=== PATIENT | female | born 1980 | race African-American/Black ===

== ENCOUNTER 2017-05-12 09:07 | Emergency (ER) | payer MEDICAID ==
[~2017-05-12] VITALS: Ht 172.7 cm; Wt 61.6 kg
[~2017-05-12 09:07] MED LIST: FAMO20TA7 PO; FLUO10CA13 PO; HYDR-3245 PO; HYDR-3307 PO; HYDR25TA11 PO; IBUP-1223 PO; METH500T97 PO; OXYB5TAB7 PO; PRED20TA PO; PREG25CA PO; QUET25TA5 PO
[2017-05-12 09:12] VITALS: BP 114/77
== END 2017-05-12 10:08 | disposition left against medical advice (07) ==
LOC: ED 10:02
DX: R10.9 Unspecified abdominal pain (principal); Z53.21 Procedure and treatment not carried out due to patient leaving prior to being seen by health care provider

== ENCOUNTER 2018-02-22 16:24 | Emergency (ER) | payer MEDICAID ==
[~2018-02-22 16:24] MED LIST changes: +OMEP-110 PO; +ONDA4TAB10 PO
[2018-02-22 16:40] VITALS: BP 162/105
--- NOTE | 2018-02-22 16:59 | NUR ---
PT ARRIVES TO ED WITH C/O OF BLISTERS TO NOSE. WAS GIVEN OINTMENT FOR THEM 5 DAYS AGO. PT REPORTS SOME TENDERNESS TO NOSE. VSS AND NADN. PT WATCHING TV AND SPEAKING FULL SENTANCES. AWAITING FURTHER ORDERS.
--- NOTE | 2018-02-22 17:12 | NUR ---
Patient/Caregiver given discharge instructions and they have confirmed that they understand the instructions. Patient ambulatory with steady gait.
== END 2018-02-22 17:19 | disposition home or self-care (01) ==
LOC: ED 17:18
DX: J34.0 Abscess, furuncle and carbuncle of nose (principal); J01.90 Acute sinusitis, unspecified; J45.909 Unspecified asthma, uncomplicated
CPT/HCPCS: 99283

== ENCOUNTER 2018-03-06 11:31 | Emergency (ER) | payer MEDICAID ==
[~2018-03-06] VITALS: Ht 172.7 cm; Wt 59.6 kg
[2018-03-06 11:34] VITALS: BP 109/76
[2018-03-06] MEDS ORDERED: SODIUM CHLORIDE FLUSH 10ML SYR IVF ONE (12:00)
[2018-03-06] MEDS ORDERED: METOCLOPRAMIDE 5 MG/ML, 2ML IVPush ONE (12:00)
[2018-03-06] MEDS ORDERED: DIPHENHYDRAMINE 50 MG/ML, 1ML IVPush ONE (12:00)
[2018-03-06] MEDS ORDERED: DIPHENHYDRAMINE 50 MG/ML, 1ML ONE (12:14)
[2018-03-06] MEDS ORDERED: METOCLOPRAMIDE 5 MG/ML, 2ML ONE (12:15)
[2018-03-06 12:21] LABS: BASOPHILS % (AUTO) 0 % (0-1); EOSINOPHILS # (AUTO) 0.12 x10^3/uL (0-0.4); EOSINOPHILS % (AUTO) 1 % (1-7); LYMPHOCYTES # (AUTO) 0.48 x10^3/uL (1-3.4); LYMPHOCYTES % (AUTO) 4 % (22-44); MD NO; MEAN CORPUSCULAR HEMOGLOBIN 33.1 pg (27.0-34.8); MEAN CORPUSCULAR VOLUME 97.4 fL (80-100); MEAN PLATELET VOLUME 7.5 fL (7.4-10.4); MONOCYTES # (AUTO) 0.05 x10^3/uL (0.2-0.8); MONOCYTES % (AUTO) 1 % (2-9); NEUTROPHILS # (AUTO) 10.36 x10^3/uL (1.8-6.8); NEUTROPHILS % (AUTO) 94 % (42-75); PLATELET COUNT 237 x10^3/uL (130-400); RED BLOOD COUNT 3.89 x10^6/uL (3.82-5.3); RED CELL DISTRIBUTION WIDTH 12.8 % (9.6-15.2)
[2018-03-06 12:28] LABS: ALANINE AMINOTRANSFERASE 42 U/L (12-78); ALBUMIN 3.9 g/dL (3.4-5.0); ANION GAP 6 mmol/L (5-15); CALCIUM 9.2 mg/dL (8.5-10.1); CHLORIDE 110 mmol/L (98-107); CREATININE 0.94 mg/dL (0.55-1.02)
[2018-03-06 12:31] LABS: ALKALINE PHOSPHATASE 93 U/L (45-117); BILIRUBIN,TOTAL 0.4 mg/dL (0.2-1.0); TOTAL PROTEIN 7.1 g/dL (6.4-8.2)
--- NOTE | 2018-03-06 13:28 | NUR ---
PT TOLERATING PO FLUIDS WELL. DR ABREU TO BEDSIDE TO DISCUSS POC AND FINDINGS. PT UNABLE TO PRODUCE STOOL SAMPLE THUS FAR
== END 2018-03-06 13:54 | disposition home or self-care (01) ==
LOC: ED 11:58
DX: R11.2 Nausea with vomiting, unspecified (principal); R19.7 Diarrhea, unspecified; J45.909 Unspecified asthma, uncomplicated; G89.29 Other chronic pain
CPT/HCPCS: 36415; 80053; 83690; 85025; 96374; 96375; 99283; J1200; J2765

== ENCOUNTER 2019-08-08 09:47 | Emergency (ER) | payer MEDICAID ==
[~2019-08-08] VITALS: Ht 172.7 cm; Wt 63.6 kg
[~2019-08-08 09:47] MED LIST changes: +HYDR-3246 PO; -HYDR-3307 PO; +HYDR-826 PO; -HYDR25TA11 PO; +OXYB5TAB10 PO; -OXYB5TAB7 PO
--- NOTE | 2019-08-08 10:05 | NUR ---
FIRST CONTACT WITH PT. PT C/O VOMITING/BACK PAIN "I STARTED VOMITING LAST NIGHT AFTER I ATE BAD SUSHI AND I HAVEN'T BEEN ABLE TO TAKE MY PAIN MEDS FOR MY HERNIATED DISCS, NOW MY BACK IS KILLING ME I'M SUPPOSED TO HAVE URGENT SURGERY SOON FOR SADDLE PARASTHESIA" PT DENIES ABD PAIN/D. PT'S AOX4. RESPS EVEN AND UNLABORED. BP/SPO2 MONITORS IN PLACE. CALL LIGHT WITHIN REACH.
[2019-08-08] MEDS ORDERED: DIPHENHYDRAMINE 50 MG/ML, 1ML ONE (10:26)
[2019-08-08] MEDS ORDERED: MORPHINE SULFATE 4 MG/ML, 1ML ONE ×2 (10:27→11:51)
[2019-08-08] MEDS ORDERED: METOCLOPRAMIDE 5 MG/ML, 2ML ONE (10:27)
[2019-08-08] MEDS: MORPHINE SULFATE 4 MG/ML, 1ML IVPush PRN ×2 (10:39→11:54)
--- NOTE | 2019-08-08 10:44 | NUR ---
PT MEDICATED PER EMAR. PT TOLERATED WELL. NS INFUSING AT THIS TIME.
--- NOTE | 2019-08-08 10:59 | NUR ---
PT'S PAIN LEVEL IS 7/10 AT THIS TIME. PT STATES "I FEEL BETTER THAN BEFORE."
[2019-08-08 11:00] LABS: BASOPHILS % (AUTO) 0 % (0-1); EOSINOPHILS % (AUTO) 0 % (1-7); LYMPHOCYTES % (AUTO) 6 % (22-44); MD NO; MEAN CORPUSCULAR HEMOGLOBIN 33.5 pg (27.0-34.8); MEAN CORPUSCULAR HGB CONC 34.3 g/dL (32.4-35.8); MEAN CORPUSCULAR VOLUME 97.9 fL (80-100); MEAN PLATELET VOLUME 6.9 fL (7.4-10.4); MONOCYTES # (AUTO) 0.06 x10^3/uL (0.2-0.8); MONOCYTES % (AUTO) 1 % (2-9); NEUTROPHILS # (AUTO) 12.11 x10^3/uL (1.8-6.8); NEUTROPHILS % (AUTO) 94 % (42-75); PLATELET COUNT 293 x10^3/uL (130-400); RED BLOOD COUNT 4.14 x10^6/uL (3.82-5.3); RED CELL DISTRIBUTION WIDTH 12.8 % (9.6-15.2)
[2019-08-08] MEDS ORDERED: METOCLOPRAMIDE 5 MG/ML, 2ML IVPush ONE (11:00)
[2019-08-08] MEDS ORDERED: DIPHENHYDRAMINE 50 MG/ML, 1ML IVPush ONE (11:00)
[2019-08-08] MEDS ORDERED: SODIUM CHLORIDE FLUSH 10ML SYR IVF ONE (11:00)
[2019-08-08] MEDS ORDERED: SODIUM CHLORIDE 0.9% 1,000ML IVBOLUS ONE (11:00)
[2019-08-08 11:11] LABS: ALANINE AMINOTRANSFERASE 28 U/L (12-78); ALBUMIN 4.3 g/dL (3.4-5.0); CALCIUM 9.8 mg/dL (8.5-10.1); CREATININE 1.06 mg/dL (0.55-1.02)
[2019-08-08 11:19] LABS: CHLORIDE 108 mmol/L (98-107)
[2019-08-08 11:20] LABS: ALKALINE PHOSPHATASE 88 U/L (45-117); ANION GAP 12 mmol/L (5-15); BILIRUBIN,TOTAL 0.7 mg/dL (0.2-1.0); TOTAL PROTEIN 7.7 g/dL (6.4-8.2)
--- NOTE | 2019-08-08 11:48 | NUR ---
pt sleeping in [facility]. resps even and unlabored. bp/spo2 monitors in place. call light within reach.
[2019-08-08] MEDS ORDERED: PROMETHAZINE 25 MG/ML, 1ML ONE (11:51)
--- NOTE | 2019-08-08 11:58 | NUR ---
pt medicated per emar. pt tolerated well. pt states"my pain level is 8/10 now."
[2019-08-08] MEDS ORDERED: PROMETHAZINE 25 MG/ML, 1ML IM ONE (12:00)
[2019-08-08 13:00] VITALS: BP 118/57
--- NOTE | 2019-08-08 13:01 | NUR ---
Patient given discharge instructions and they have confirmed that they understand the instructions. Patient ambulatory with steady gait.
== END 2019-08-08 13:01 | disposition home or self-care (01) ==
LOC: ED 11:29
DX: R11.2 Nausea with vomiting, unspecified (principal); E86.0 Dehydration; J45.909 Unspecified asthma, uncomplicated
CPT/HCPCS: 36415; 80053; 83690; 85025; 96361; 96372; 96374; 96375; 96376; 99285; J1200; J2270; J2550; J2765; J7030

== ENCOUNTER 2019-08-10 05:59 | Emergency (ER) | payer MEDICAID ==
[~2019-08-10] VITALS: Ht 172.7 cm; Wt 65.0 kg
[2019-08-10] MEDS ORDERED: FAMOTIDINE 20 MG/2 ML ONE (06:20)
[2019-08-10] MEDS ORDERED: ONDANSETRON 2MG/ML, 2ML ONE (06:20)
[2019-08-10] MEDS ORDERED: SODIUM CHLORIDE 0.9% 1,000ML IVBOLUS ONE (06:30)
[2019-08-10] MEDS ORDERED: FAMOTIDINE 20 MG/2 ML IVPush ONE (06:30)
[2019-08-10] MEDS ORDERED: SODIUM CHLORIDE FLUSH 10ML SYR IVF ONE (06:30)
[2019-08-10] MEDS ORDERED: ONDANSETRON 2MG/ML, 2ML IVPush ONE (06:30)
--- NOTE | 2019-08-10 06:49 | NUR ---
REPORT GIVEN TO ONCOMING RN
[2019-08-10 06:50] LABS: BASOPHILS # (AUTO) 0.03 x10^3/uL (0-0.1); BASOPHILS % (AUTO) 0 % (0-1); EOSINOPHILS # (AUTO) 0.06 x10^3/uL (0-0.4); EOSINOPHILS % (AUTO) 1 % (1-7); LYMPHOCYTES # (AUTO) 2.24 x10^3/uL (1-3.4); LYMPHOCYTES % (AUTO) 24 % (22-44); MD NO; MEAN CORPUSCULAR HEMOGLOBIN 33.1 pg (27.0-34.8); MEAN CORPUSCULAR HGB CONC 33.6 g/dL (32.4-35.8); MEAN CORPUSCULAR VOLUME 98.7 fL (80-100); MEAN PLATELET VOLUME 6.7 fL (7.4-10.4); MONOCYTES % (AUTO) 4 % (2-9); NEUTROPHILS # (AUTO) 6.56 x10^3/uL (1.8-6.8); NEUTROPHILS % (AUTO) 71 % (42-75); PLATELET COUNT 268 x10^3/uL (130-400); RED BLOOD COUNT 3.67 x10^6/uL (3.82-5.3); RED CELL DISTRIBUTION WIDTH 13.3 % (9.6-15.2)
[2019-08-10 06:59] LABS: ALBUMIN 3.8 g/dL (3.4-5.0); CHLORIDE 112 mmol/L (98-107)
--- NOTE | 2019-08-10 07:04 | NUR ---
RECEIVED REPORT FROM [facility]. PT LAYING ON GURNEY C/O NV & PAIN- PA AWARE, PT AMBULATED STEADILY TO BR & UNABLE TO VOID, RESPONDS APPROP TO STAFF, COMFORT MEASURES PROVIDED, CALL LIGHT WITHN REACH.
[2019-08-10 07:05] LABS: ALANINE AMINOTRANSFERASE 25 U/L (12-78); ALKALINE PHOSPHATASE 80 U/L (45-117); ANION GAP 6 mmol/L (5-15); BILIRUBIN,TOTAL 0.6 mg/dL (0.2-1.0); CREATININE 1.28 mg/dL (0.55-1.02); TOTAL PROTEIN 6.8 g/dL (6.4-8.2)
[2019-08-10] MEDS ORDERED: HALOPERIDOL 5 MG/ML ONE (07:10)
[2019-08-10] MEDS ORDERED: HALOPERIDOL 5 MG/ML IM ONE (07:30)
[2019-08-10 08:00] VITALS: BP 148/87
--- NOTE | 2019-08-10 08:00 | NUR ---
PT LAYING ON GURNEY WITH EYES CLOSED & MORE COMFORTABLE, 2ND ATTEMPT TO VOID UNSUCCESSFUL, RESPONDS APPROP TO STAFF, COMFORT MEASURES PROVIDED, CALL LIGHT WITHN REACH.
--- NOTE | 2019-08-10 08:10 | NUR ---
STRAIGHT CATHED UA SENT TO LAB.
[2019-08-10] MEDS ORDERED: MORPHINE SULFATE 4 MG/ML, 1ML IVPush PRN (08:30)
[2019-08-10 08:34] LABS: MICROSCOPIC NOT IND
[2019-08-10] MEDS ORDERED: MORPHINE SULFATE 4 MG/ML, 1ML ONE (08:52)
--- NOTE | 2019-08-10 09:23 | NUR ---
Patient given discharge instructions and Rx, they have confirmed that they understand the instructions. Patient ambulatory with steady gait.
== END 2019-08-10 09:25 | disposition home or self-care (01) ==
LOC: ED 06:44
DX: K52.9 Noninfective gastroenteritis and colitis, unspecified (principal); R11.2 Nausea with vomiting, unspecified; R10.9 Unspecified abdominal pain; G89.29 Other chronic pain; J45.909 Unspecified asthma, uncomplicated
CPT/HCPCS: 36415; 80053; 81003; 83690; 84703; 85025; 96361; 96372; 96374; 96375; 99284; J1630; J2405; J3490; J7030

== ENCOUNTER 2019-08-12 11:48 | Emergency (ER) | payer MEDICAID ==
[~2019-08-12] VITALS: Ht 172.7 cm; Wt 67.2 kg
--- NOTE | 2019-08-12 12:17 | NUR ---
Pts siginificant other having loud tone and hostile behaviors towards staff. S.O. came out of room screaming "she needs some anti nausea medicine now! she has a pinched nerve and she could from throwing up"! "Get a doctor in here now". Pts S.O informed that it is not in the scope of the Registered nurse to order medications as its not in this rns scope. Informed that physcian will see here as soon as possible. Pt informed that we will see her as soon as possible. Pt is leaning over edge of bed attempting to throw up but nothing has come out and bag is dry. Pt is not truly dry heaving. Pt has been to this E.D. 3 times in the past week for this same complaint and has been treated approrpitately. Pt is requesting a endoscopy now. Pt has been given appropriate medications at [facility] and it is unknown if she has actually filled the perscriptions. Dr. Weiner informed of husbands behavior and demands for medications.
[2019-08-12] MEDS ORDERED: HALOPERIDOL 5 MG/ML ONE (12:46)
[2019-08-12] MEDS ORDERED: MAALOX/HYOSCYAMINE/LIDOCAINE 45 ML BTL ONE (12:46)
[2019-08-12] MEDS ORDERED: FAMOTIDINE 20 MG/2 ML ONE (12:46)
[2019-08-12] MEDS ORDERED: ONDANSETRON 2MG/ML, 2ML ONE (12:46)
--- NOTE | 2019-08-12 12:47 | NUR ---
Pt PIV placed and medicated per emar.
[2019-08-12] MEDS ORDERED: ONDANSETRON 2MG/ML, 2ML IVPush ONE (13:00)
[2019-08-12] MEDS ORDERED: MAALOX/HYOSCYAMINE/LIDOCAINE 45 ML BTL PO ONE (13:00)
[2019-08-12] MEDS ORDERED: SODIUM CHLORIDE FLUSH 10ML SYR IVF ONE (13:00)
[2019-08-12] MEDS ORDERED: SODIUM CHLORIDE 0.9% 1,000ML IVBOLUS ONE (13:00)
[2019-08-12] MEDS ORDERED: HALOPERIDOL 5 MG/ML IV ONE (13:00)
[2019-08-12] MEDS ORDERED: FAMOTIDINE 20 MG/2 ML IV ONE (13:00)
[2019-08-12 13:32] LABS: BASOPHILS # (AUTO) 0.01 x10^3/uL (0-0.1); BASOPHILS % (AUTO) 0 % (0-1); EOSINOPHILS % (AUTO) 0 % (1-7); LYMPHOCYTES # (AUTO) 0.93 x10^3/uL (1-3.4); LYMPHOCYTES % (AUTO) 11 % (22-44); MD NO; MEAN CORPUSCULAR HEMOGLOBIN 32.7 pg (27.0-34.8); MEAN CORPUSCULAR HGB CONC 33.2 g/dL (32.4-35.8); MEAN CORPUSCULAR VOLUME 98.6 fL (80-100); MEAN PLATELET VOLUME 6.6 fL (7.4-10.4); MONOCYTES # (AUTO) 0.19 x10^3/uL (0.2-0.8); MONOCYTES % (AUTO) 2 % (2-9); NEUTROPHILS # (AUTO) 7.57 x10^3/uL (1.8-6.8); NEUTROPHILS % (AUTO) 87 % (42-75); PLATELET COUNT 271 x10^3/uL (130-400); RED BLOOD COUNT 3.78 x10^6/uL (3.82-5.3); RED CELL DISTRIBUTION WIDTH 12.6 % (9.6-15.2)
[2019-08-12 13:46] LABS: ALANINE AMINOTRANSFERASE 21 U/L (12-78); ALBUMIN 3.9 g/dL (3.4-5.0); ANION GAP 10 mmol/L (5-15); CHLORIDE 109 mmol/L (98-107)
[2019-08-12 13:50] LABS: ALKALINE PHOSPHATASE 69 U/L (45-117); BILIRUBIN,TOTAL 0.5 mg/dL (0.2-1.0); TOTAL PROTEIN 6.8 g/dL (6.4-8.2)
[2019-08-12 14:24] VITALS: BP 108/47
[2019-08-12 14:37] LABS: MICROSCOPIC NOT IND
[2019-08-12] MEDS ORDERED: ACETAMINOPHEN 325 MG TABLET ONE (14:50)
--- NOTE | 2019-08-12 14:52 | NUR ---
Pt medicated for pain.
[2019-08-12] MEDS ORDERED: ACETAMINOPHEN 325 MG TABLET PO ONE (15:00)
--- NOTE | 2019-08-12 15:02 | NUR ---
Patient/Caregiver given discharge instructions and they have confirmed that they understand the instructions. Patient ambulatory with steady gait.
== END 2019-08-12 15:42 | disposition home or self-care (01) ==
LOC: ED 13:07
DX: R11.2 Nausea with vomiting, unspecified (principal); R30.0 Dysuria; R19.7 Diarrhea, unspecified; R10.10 Upper abdominal pain, unspecified; J45.909 Unspecified asthma, uncomplicated; G89.29 Other chronic pain; R94.31 Abnormal electrocardiogram [ECG] [EKG]
CPT/HCPCS: 36415; 76700; 80053; 81003; 83690; 84703; 85025; 93005; 96361; 96374; 96375; 99285; J1630; J2405; J3490; J7030

== ENCOUNTER 2019-08-14 05:59 | Inpatient (IN) | payer MEDICAID ==
[~2019-08-14] VITALS: Ht 172.7 cm; Wt 68.4 kg
[2019-08-14] MEDS ORDERED: HALOPERIDOL 5 MG/ML ONE (06:19)
[2019-08-14] MEDS ORDERED: DIPHENHYDRAMINE 50 MG/ML, 1ML ONE (06:19)
[2019-08-14] MEDS ORDERED: METOCLOPRAMIDE 5 MG/ML, 2ML ONE (06:19)
--- NOTE | 2019-08-14 06:27 | NUR ---
PT RESTING ON GURNEY, IV SITE STARTED. ERP AT PT'S BEDSIDE FOR EVAL
[2019-08-14] MEDS ORDERED: METOCLOPRAMIDE 5 MG/ML, 2ML IVPush ONE (06:30)
[2019-08-14] MEDS ORDERED: DIPHENHYDRAMINE 50 MG/ML, 1ML IVPush ONE (06:30)
[2019-08-14] MEDS ORDERED: HALOPERIDOL 5 MG/ML IM PRN (06:30)
[2019-08-14] MEDS ORDERED: SODIUM CHLORIDE 0.9% 1,000ML IVBOLUS ONE (06:30)
--- NOTE | 2019-08-14 06:40 | NUR ---
PT MEDICATED PER MAR, MONITORS IN PLACE, SIDERAILS UP X2, CALL LIGHT WITHIN REACH
--- NOTE | 2019-08-14 06:53 | NUR ---
REPORT GIVEN TO TENA RAHMAN
[2019-08-14 07:12] LABS: MEAN CORPUSCULAR HEMOGLOBIN 33.6 pg (27.0-34.8); MEAN CORPUSCULAR VOLUME 98.9 fL (80-100); MEAN PLATELET VOLUME 6.9 fL (7.4-10.4); PLATELET COUNT 290 x10^3/uL (130-400); RED BLOOD COUNT 3.98 x10^6/uL (3.82-5.3); RED CELL DISTRIBUTION WIDTH 13.3 % (9.6-15.2)
[2019-08-14 07:16] LABS: ALANINE AMINOTRANSFERASE 25 U/L (12-78); ALBUMIN 4.2 g/dL (3.4-5.0); ANION GAP 8 mmol/L (5-15); CHLORIDE 109 mmol/L (98-107)
[2019-08-14 07:18] LABS: ALKALINE PHOSPHATASE 73 U/L (45-117); BILIRUBIN,TOTAL 0.6 mg/dL (0.2-1.0); TOTAL PROTEIN 7.8 g/dL (6.4-8.2)
[2019-08-14 07:45] LABS: BASOPHILS # (AUTO) 0.01 x10^3/uL (0-0.1); BASOPHILS % (AUTO) 0 % (0-1); EOSINOPHILS # (AUTO) 0.04 x10^3/uL (0-0.4); EOSINOPHILS % (AUTO) 0 % (1-7); LYMPHOCYTES # (AUTO) 1.77 x10^3/uL (1-3.4); LYMPHOCYTES % (AUTO) 13 % (22-44); MD SCAN; MONOCYTES # (AUTO) 0.54 x10^3/uL (0.2-0.8); MONOCYTES % (AUTO) 4 % (2-9); NEUTROPHILS % (AUTO) 82 % (42-75)
[2019-08-14] MEDS ORDERED: HALOPERIDOL 1 MG TABLET PO PRN (08:30)
[2019-08-14] MEDS ORDERED: CAPSAICIN CRM 0.075%, 60GM TP SCH (09:00)
[2019-08-14] MEDS: ENOXAPARIN 40 MG/0.4 ML SQ SCH (09:00)
[2019-08-14] MEDS ORDERED: MAGNESIUM SULFATE/D5W 100 ML IV ONE (09:00)
[2019-08-14 09:32] VITALS: BP 164/91
[2019-08-14] MEDS: METOCLOPRAMIDE 5 MG/ML, 2ML IVPush PRN ×2 (09:34→16:18)
[2019-08-14] MEDS: FAMOTIDINE 20 MG/2 ML IVPush SCH ×2 (09:34→20:39)
[2019-08-14] MEDS: NS + 20MEQ KCL 1,000 ML IV SCH ×2 (09:34→20:52)
[2019-08-14] MEDS: KETOROLAC 30 MG/1 ML IV PRN (10:04)
[2019-08-14] MEDS: LORazepam 2 MG/ML, 1ML IVPush PRN ×2 (10:48→18:35)
[2019-08-14] MEDS ORDERED: OXYC15TA3 PO (11:32)
[2019-08-14] MEDS ORDERED: CAPS60CR23 TP (11:32)
[2019-08-14 12:29] VITALS: BP 147/105
[2019-08-14] MEDS ORDERED: HALOPERIDOL 5 MG/ML IM ONE (13:30)
[2019-08-14] MEDS ORDERED: METHOCARBAMOL 500 MG TABLET PO SCH (13:30)
[2019-08-14 14:30] LABS: AMPHETAMINE SCREEN, URINE Negative (Negative); BARBITURATE SCREEN, URINE Negative (Negative); BENZODIAZEPINE SCREEN, URINE Positive (Negative); CANNABINOID SCREEN, URINE Positive (Negative); COCAINE SCREEN, URINE Negative (Negative); METHADONE SCREEN, URINE Negative (Negative); OPIATE SCREEN, URINE Negative (Negative)
[2019-08-14] MEDS ORDERED: CAPSAICIN CRM 0.025%, 60GM TP SCH (14:30)
[2019-08-14] MEDS: CAPSAICIN CRM 0.075%, 60GM TP SCH ×2 (15:40→20:56)
[2019-08-14] MEDS ORDERED: OXYcodone IR 5MG TABLET ONE ×2 (15:51→20:31)
[2019-08-14 15:55] VITALS: BP 136/91
[2019-08-14] MEDS: OXYcodone IR 30 MG TABLET PO SCH ×2 (16:00→20:41)
[2019-08-14] MEDS: METHOCARBAMOL 500 MG TABLET PO SCH ×2 (16:02→20:40)
[2019-08-14 19:30] VITALS: BP 153/99
[2019-08-14] MEDS: HALOPERIDOL 5 MG/ML IM PRN (20:39)
[2019-08-15] MEDS: LORazepam 2 MG/ML, 1ML IVPush PRN ×3 (01:19→15:37)
[2019-08-15 02:26] VITALS: BP 145/97
[2019-08-15] MEDS: NS + 20MEQ KCL 1,000 ML IV SCH ×3 (04:20→22:15)
[2019-08-15] MEDS ORDERED: OXYcodone IR 5MG TABLET ONE ×3 (05:16→15:31)
[2019-08-15] MEDS: HALOPERIDOL 5 MG/ML IM PRN ×2 (05:20→13:14)
[2019-08-15 05:34] LABS: BASOPHILS # (AUTO) 0.01 x10^3/uL (0-0.1); BASOPHILS % (AUTO) 0 % (0-1); EOSINOPHILS # (AUTO) 0.12 x10^3/uL (0-0.4); EOSINOPHILS % (AUTO) 1 % (1-7); LYMPHOCYTES # (AUTO) 2.14 x10^3/uL (1-3.4); LYMPHOCYTES % (AUTO) 20 % (22-44); MD NO; MEAN CORPUSCULAR HEMOGLOBIN 33.1 pg (27.0-34.8); MEAN CORPUSCULAR HGB CONC 33.5 g/dL (32.4-35.8); MEAN CORPUSCULAR VOLUME 98.9 fL (80-100); MEAN PLATELET VOLUME 7.1 fL (7.4-10.4); MONOCYTES # (AUTO) 0.56 x10^3/uL (0.2-0.8); MONOCYTES % (AUTO) 5 % (2-9); NEUTROPHILS # (AUTO) 7.78 x10^3/uL (1.8-6.8); NEUTROPHILS % (AUTO) 73 % (42-75); PLATELET COUNT 257 x10^3/uL (130-400); RED BLOOD COUNT 3.33 x10^6/uL (3.82-5.3)
[2019-08-15 05:39] LABS: ANION GAP 6 mmol/L (5-15); CALCIUM 8.6 mg/dL (8.5-10.1); CHLORIDE 112 mmol/L (98-107)
[2019-08-15] MEDS: OXYcodone IR 30 MG TABLET PO SCH ×3 (05:40→15:37)
[2019-08-15] MEDS: METHOCARBAMOL 500 MG TABLET PO SCH ×4 (05:40→20:11)
[2019-08-15 05:49] LABS: CREATININE 0.84 mg/dL (0.55-1.02)
[2019-08-15 07:19] VITALS: BP 146/92
[2019-08-15] MEDS: FAMOTIDINE 20 MG/2 ML IVPush SCH ×2 (08:58→20:11)
[2019-08-15] MEDS: OMEPRAZOLE 20 MG CAPSULE.DR PO SCH (08:58)
[2019-08-15] MEDS: CAPSAICIN CRM 0.075%, 60GM TP SCH ×3 (09:00→21:00)
[2019-08-15] MEDS: ENOXAPARIN 40 MG/0.4 ML SQ SCH (09:00)
[2019-08-15] MEDS: METOCLOPRAMIDE 5 MG/ML, 2ML IVPush PRN (11:26)
[2019-08-15 12:40] VITALS: BP 151/95
[2019-08-15] MEDS ORDERED: DIPHENHYDRAMINE 50 MG/ML, 1ML IVPush PRN (13:30)
[2019-08-15 18:39] VITALS: BP 144/89
[2019-08-15] MEDS: HALOPERIDOL 5 MG/ML IV PRN (19:19)
[2019-08-15] MEDS: OXYcodone IR 5MG TABLET PO PRN (21:36)
[2019-08-16] MEDS: HALOPERIDOL 5 MG/ML IV PRN ×4 (00:36→14:36)
[2019-08-16 01:57] VITALS: BP 138/84
[2019-08-16] MEDS: OXYcodone IR 5MG TABLET PO PRN ×2 (04:45→08:27)
[2019-08-16] MEDS: METHOCARBAMOL 500 MG TABLET PO SCH ×2 (05:28→10:34)
[2019-08-16] MEDS: NS + 20MEQ KCL 1,000 ML IV SCH ×2 (05:28→12:45)
[2019-08-16 06:16] VITALS: BP 131/83
[2019-08-16] MEDS: ACETAMINOPHEN 325 MG TABLET PO PRN ×2 (07:28→11:32)
[2019-08-16] MEDS: FAMOTIDINE 20 MG/2 ML IVPush SCH (08:17)
[2019-08-16] MEDS: OMEPRAZOLE 20 MG CAPSULE.DR PO SCH (08:17)
[2019-08-16] MEDS: ENOXAPARIN 40 MG/0.4 ML SQ SCH (08:22)
[2019-08-16] MEDS: CAPSAICIN CRM 0.075%, 60GM TP SCH (09:00)
[2019-08-16] MEDS ORDERED: POTASSIUM CHLORIDE 20 MEQ TAB.ER.PRT PO ONE (10:00)
[2019-08-16] MEDS ORDERED: MAGNESIUM OXIDE 400 MG TABLET PO SCH (10:00)
[2019-08-16 12:04] VITALS: BP 144/83
[2019-08-16] MEDS: KETOROLAC 30 MG/1 ML IV PRN (12:29)
== END 2019-08-16 15:23 | disposition home or self-care (01) | DRG 641 ==
LOC: ED 07:17 → EDIP 08:00 → 3N 08:38 → 4WST 15:28 → DCLOUNGE 08-16 15:17
PROVIDERS: ADMIT Internal Medicine; ATTEND Internal Medicine
DX: E86.0 Dehydration (principal); F11.20 Opioid dependence, uncomplicated; E87.6 Hypokalemia; F12.90 Cannabis use, unspecified, uncomplicated; G89.29 Other chronic pain; M19.90 Unspecified osteoarthritis, unspecified site; Z87.11 Personal history of peptic ulcer disease; Z79.899 Other long term (current) drug therapy; Z88.8 Allergy status to other drugs, medicaments and biological substances
CPT/HCPCS: 36415; 96361; 96374; 99285; J3490; 80048; 80053; 80307; 83690; 83735; 84100; 85025; 93005; G0378; J1885; J3480; J1200; J1630; J2060; J2765; J7030

== ENCOUNTER 2019-11-27 06:07 | Inpatient (IN) | payer MEDICAID ==
[~2019-11-27] VITALS: Ht 172.7 cm; Wt 70.4 kg
[~2019-11-27 06:07] MED LIST changes: +CAPS60CR23 TP; +OXYC15TA3 PO
[2019-11-27] MEDS ORDERED: FAMOTIDINE 20 MG/2 ML IV ONE (07:00)
[2019-11-27] MEDS ORDERED: ONDANSETRON 2MG/ML, 2ML IVPush ONE (07:00)
[2019-11-27] MEDS ORDERED: SODIUM CHLORIDE FLUSH 10ML SYR IVF ONE (07:00)
[2019-11-27] MEDS ORDERED: MAALOX/HYOSCYAMINE/LIDOCAINE 45 ML BTL PO ONE (07:00)
[2019-11-27] MEDS ORDERED: SODIUM CHLORIDE 0.9% 1,000ML IVBOLUS ONE ×2 (07:00→10:30)
[2019-11-27] MEDS ORDERED: ONDANSETRON 2MG/ML, 2ML ONE (07:39)
[2019-11-27] MEDS ORDERED: MAALOX/HYOSCYAMINE/LIDOCAINE 45 ML BTL ONE (07:40)
[2019-11-27] MEDS ORDERED: FAMOTIDINE 20 MG/2 ML ONE (07:45)
[2019-11-27 07:47] LABS: BASOPHILS # (AUTO) 0.01 x10^3/uL (0-0.1); BASOPHILS % (AUTO) 0 % (0-1); EOSINOPHILS # (AUTO) 0.02 x10^3/uL (0-0.4); EOSINOPHILS % (AUTO) 0 % (1-7); LYMPHOCYTES % (AUTO) 10 % (22-44); MD NO; MEAN CORPUSCULAR HEMOGLOBIN 32.5 pg (27.0-34.8); MEAN CORPUSCULAR HGB CONC 32.4 g/dL (32.4-35.8); MEAN PLATELET VOLUME 6.9 fL (7.4-10.4); MONOCYTES # (AUTO) 0.36 x10^3/uL (0.2-0.8); MONOCYTES % (AUTO) 2 % (2-9); NEUTROPHILS # (AUTO) 13.08 x10^3/uL (1.8-6.8); NEUTROPHILS % (AUTO) 87 % (42-75); PLATELET COUNT 364 x10^3/uL (130-400); RED BLOOD COUNT 4.23 x10^6/uL (3.82-5.3); RED CELL DISTRIBUTION WIDTH 12.6 % (9.6-15.2)
--- NOTE | 2019-11-27 07:50 | NUR ---
PT ON FLOOR ON HANDS AND KNEES VOMITING CLEAR FLUID. PT DID NOT FALL, JUST PLACED SELF ON FLOOR, STATED SITTING IN THE BED IS UNCOMFORTABLE. PT ASKED TO GET IN GURNEY SO IV COULD BE STARTED. PT COMPLIED, IV STARTED. PT MEDICATED ORDERED, ORDERED FLUIDS HANGING. PT STILL DRY HEAVING, UNABLE TO GIVE ORDERED GI COCKTAIL AT THIS TIME.
--- NOTE | 2019-11-27 08:30 | NUR ---
PT AMBULATORY TO BATHROOM STEADILY.
--- NOTE | 2019-11-27 08:58 | NUR ---
URINE WALKED TO LAB. PT RESTING IN BED. PT STATED SHE CAN TAKE THE GI COCKTAIL NOW. PT MEDICATED WITH ORDERED MED. WILL CONTINUE TO MONITOR.
[2019-11-27] MEDS ORDERED: METOCLOPRAMIDE 5 MG/ML, 2ML ONE (09:21)
--- NOTE | 2019-11-27 09:24 | NUR ---
PT CMP STILL NOT RESULTED. CONTACTED LAB, STATED THEY WILL LOOK INTO IT. PT STATED SHE IS STILL NAUSEATED AND VOMITED UP GI COCKTAIL IT MADE HER STOMACH FEEL WORSE. ERP AWARE, ORDERS PLACED. PT REMOVING VITALS MONITORS.
[2019-11-27] MEDS ORDERED: METOCLOPRAMIDE 5 MG/ML, 2ML IVPush ONE (09:30)
[2019-11-27 09:36] LABS: ALANINE AMINOTRANSFERASE 23 U/L (12-78); ALBUMIN 4.2 g/dL (3.4-5.0); ANION GAP 10 mmol/L (5-15); CHLORIDE 113 mmol/L (98-107); CREATININE 1.16 mg/dL (0.55-1.02)
[2019-11-27 09:44] LABS: ALKALINE PHOSPHATASE 99 U/L (45-117); BILIRUBIN,TOTAL 0.3 mg/dL (0.2-1.0)
--- NOTE | 2019-11-27 10:14 | NUR ---
PT STATED SHE IS FEELING A BIT BETTER. STATED SHE IS ABLE TO LAY DOWN AND NOT FEEL NAUSEATED. ERP AWARE, ORDERS PLACED.
[2019-11-27] MEDS ORDERED: ACETAMINOPHEN 325 MG TABLET PO PRN (11:00)
[2019-11-27] MEDS ORDERED: ENALAPRILAT 1.25 MG/ML, 2ML IVPush PRN (11:00)
[2019-11-27] MEDS ORDERED: ACET650S21 PO (11:09)
[2019-11-27] MEDS ORDERED: IBUP-1222 PO (11:09)
--- NOTE | 2019-11-27 11:24 | NUR ---
REPORT TO JENNIFER MADSEN
[2019-11-27] MEDS ORDERED: PROMETHAZINE 25 MG/ML, 1ML ONE (11:27)
[2019-11-27] MEDS: ENOXAPARIN 40 MG/0.4 ML SQ SCH (11:30)
[2019-11-27] MEDS: PROMETHAZINE 25 MG/ML, 1ML IM PRN ×3 (11:31→19:48)
[2019-11-27] MEDS: KETOROLAC 30 MG/1 ML IV PRN (11:45)
[2019-11-27 11:53] VITALS: BP 145/75
[2019-11-27 12:00] VITALS: BP 145/75
[2019-11-27] MEDS ORDERED: ONDANSETRON ODT 4 MG PO PRN (12:00)
[2019-11-27] MEDS: ONDANSETRON 2MG/ML, 2ML IVPush PRN ×2 (12:59→19:22)
[2019-11-27] MEDS: NS + 20MEQ KCL 1,000 ML IV SCH ×2 (12:59→23:41)
[2019-11-27] MEDS: METOCLOPRAMIDE 5 MG/ML, 2ML IVPush PRN ×2 (15:02→23:25)
[2019-11-27 18:50] VITALS: BP 151/91
[2019-11-27] MEDS: FAMOTIDINE 20 MG/2 ML IVPush SCH (20:33)
[2019-11-27] MEDS ORDERED: FAMOTIDINE 20 MG TABLET PO SCH (21:00)
[2019-11-27] MEDS ORDERED: FAMOTIDINE 20 MG/2 ML IVPush SCH (21:00)
[2019-11-28 01:10] VITALS: BP 123/79
[2019-11-28] MEDS: ONDANSETRON 2MG/ML, 2ML IVPush PRN ×3 (01:57→17:31)
[2019-11-28] MEDS: KETOROLAC 30 MG/1 ML IV PRN ×3 (02:03→23:22)
[2019-11-28] MEDS: PROMETHAZINE 25 MG/ML, 1ML IM PRN ×6 (02:25→22:38)
[2019-11-28 05:43] LABS: ANION GAP 7 mmol/L (5-15); CALCIUM 8.9 mg/dL (8.5-10.1); CHLORIDE 111 mmol/L (98-107); CREATININE 0.98 mg/dL (0.55-1.02)
[2019-11-28 05:56] LABS: BASOPHILS # (AUTO) 0.01 x10^3/uL (0-0.1); BASOPHILS % (AUTO) 0 % (0-1); EOSINOPHILS % (AUTO) 0 % (1-7); LYMPHOCYTES # (AUTO) 1.73 x10^3/uL (1-3.4); LYMPHOCYTES % (AUTO) 12 % (22-44); MD NO; MEAN CORPUSCULAR HEMOGLOBIN 32.4 pg (27.0-34.8); MEAN CORPUSCULAR HGB CONC 32.4 g/dL (32.4-35.8); MEAN PLATELET VOLUME 7.2 fL (7.4-10.4); MONOCYTES # (AUTO) 0.88 x10^3/uL (0.2-0.8); MONOCYTES % (AUTO) 6 % (2-9); NEUTROPHILS # (AUTO) 11.52 x10^3/uL (1.8-6.8); NEUTROPHILS % (AUTO) 81 % (42-75); PLATELET COUNT 368 x10^3/uL (130-400); RED BLOOD COUNT 3.94 x10^6/uL (3.82-5.3); RED CELL DISTRIBUTION WIDTH 12.7 % (9.6-15.2)
[2019-11-28] MEDS: NS + 20MEQ KCL 1,000 ML IV SCH (06:08)
[2019-11-28 07:20] VITALS: BP 137/91
[2019-11-28] MEDS: METOCLOPRAMIDE 5 MG/ML, 2ML IVPush PRN ×3 (07:57→20:21)
[2019-11-28] MEDS: FAMOTIDINE 20 MG/2 ML IVPush SCH (08:03)
[2019-11-28] MEDS ORDERED: ALUMINUM/MAG/SIMETHICONE 30 ML UDC PO PRN (09:30)
[2019-11-28] MEDS ORDERED: PANTOPRAZOLE 40 MG IV IVPush SCH (09:30)
[2019-11-28] MEDS: SUCRALFATE 1 GM/10 ML UDC PO SCH ×3 (11:19→20:21)
[2019-11-28] MEDS: ENOXAPARIN 40 MG/0.4 ML SQ SCH (11:30)
[2019-11-28 14:21] VITALS: BP 163/92
[2019-11-28] MEDS: PANTOPRAZOLE 40MG TABLET PO SCH (17:32)
[2019-11-28 19:19] VITALS: BP 154/90
[2019-11-29 02:13] VITALS: BP 149/98
[2019-11-29] MEDS: METOCLOPRAMIDE 5 MG/ML, 2ML IVPush PRN ×3 (02:30→18:10)
[2019-11-29] MEDS: PANTOPRAZOLE 40MG TABLET PO SCH ×2 (05:29→16:20)
[2019-11-29] MEDS: ONDANSETRON 2MG/ML, 2ML IVPush PRN ×3 (05:29→22:58)
[2019-11-29] MEDS: SUCRALFATE 1 GM/10 ML UDC PO SCH ×4 (06:30→20:57)
[2019-11-29 08:30] VITALS: BP 151/97
[2019-11-29] MEDS: KETOROLAC 30 MG/1 ML IV PRN ×2 (09:55→16:18)
[2019-11-29] MEDS: ENOXAPARIN 40 MG/0.4 ML SQ SCH (11:30)
[2019-11-29 14:51] VITALS: BP 160/94
[2019-11-29] MEDS: PROMETHAZINE 25 MG/ML, 1ML IM PRN ×2 (15:03→21:49)
[2019-11-29 19:32] VITALS: BP 152/88
[2019-11-30] MEDS: KETOROLAC 30 MG/1 ML IV PRN ×2 (00:46→08:00)
[2019-11-30 01:04] VITALS: BP 149/63
[2019-11-30 01:12] VITALS: BP 147/87
[2019-11-30] MEDS: SUCRALFATE 1 GM/10 ML UDC PO SCH ×2 (05:58→10:51)
[2019-11-30] MEDS: PANTOPRAZOLE 40MG TABLET PO SCH (05:59)
[2019-11-30] MEDS: ONDANSETRON 2MG/ML, 2ML IVPush PRN (05:59)
[2019-11-30 07:52] VITALS: BP 139/90
[2019-11-30] MEDS ORDERED: ONDA4TAB13 PO (09:44)
[2019-11-30] MEDS ORDERED: PANT40TA6 PO (09:44)
[2019-11-30] MEDS ORDERED: METO10TA2 PO (09:44)
[2019-11-30] MEDS ORDERED: SUCR1ORA5 PO (09:44)
[2019-11-30] MEDS: METOCLOPRAMIDE 5 MG/ML, 2ML IVPush PRN (10:46)
[2019-11-30] MEDS: ENOXAPARIN 40 MG/0.4 ML SQ SCH (10:52)
== END 2019-11-30 11:35 | disposition home or self-care (01) | DRG 897 ==
LOC: ED 06:38 → INTOOBSV 10:39 → 3N 10:39 → SUATTDRO 10:44 → OBSVTOIN 11-29 15:11 → DCLOUNGE 11-30 11:30
PROVIDERS: ADMIT Family Medicine; ATTEND Hospitalist
DX: F12.20 Cannabis dependence, uncomplicated (principal); E87.2 Acidosis; E86.0 Dehydration; G89.29 Other chronic pain; Z87.11 Personal history of peptic ulcer disease; K21.9 Gastro-esophageal reflux disease without esophagitis; M54.9 Dorsalgia, unspecified; Z88.2 Allergy status to sulfonamides; Z88.8 Allergy status to other drugs, medicaments and biological substances; F41.1 Generalized anxiety disorder
CPT/HCPCS: 36415; 96361; 96374; 96375; 99285; J3490; 80048; 80053; 83605; 83690; 85025; 93005; G0378; J1885; J2405; J2550; J3480; Q0162; J2765; J7030

== ENCOUNTER 2020-06-12 17:44 | Emergency (ER) | payer MEDICAID, BC ==
[~2020-06-12] VITALS: Ht 172.7 cm; Wt 75.0 kg
[~2020-06-12 17:44] MED LIST changes: +ACET650S21 PO; -HYDR-3245 PO; -HYDR-3246 PO; +HYDR-3248 PO; +HYDR1TAB53 PO; +IBUP-1222 PO; +METO10TA2 PO; +ONDA4TAB13 PO; +PANT40TA6 PO; +SUCR1ORA5 PO
--- NOTE | 2020-06-12 18:53 | NUR ---
XR AT BS
[2020-06-12] MEDS ORDERED: KETOROLAC 30 MG/1 ML IM ONE (19:00)
[2020-06-12] MEDS ORDERED: KETOROLAC 30 MG/1 ML ONE (19:02)
--- NOTE | 2020-06-12 19:10 | NUR ---
PT MEDICATED PER ERP ORDER FOR 8/10 FOOT PAIN. AWAITING XR READ. CALL LIGHT WITHIN REACH.
--- NOTE | 2020-06-12 19:28 | NUR ---
XR RESULTS BACK, PT FOR RECHECK
[2020-06-12 20:50] VITALS: BP 122/64
== END 2020-06-12 20:52 | disposition home or self-care (01) ==
LOC: ED 19:02
DX: S92.354A Nondisplaced fracture of fifth metatarsal bone, right foot, initial encounter for closed fracture (principal); M79.89 Other specified soft tissue disorders; X58.XXXA Exposure to other specified factors, initial encounter; Y93.89 Activity, other specified; Y92.89 Other specified places as the place of occurrence of the external cause; Y99.8 Other external cause status
CPT/HCPCS: 29515; 73630; 96372; 99283; J1885